=== PATIENT | female | born 1940 | race Caucasian/White ===

== ENCOUNTER 2017-01-25 06:37 | Day surgery (SDC) | payer MEDICARE ==
[~2017-01-25 06:37] MED LIST: BISOPROLOL 5MG T5 MG PO; BISOPROLOL/HCTZ1 TA1 PO; FUROSEMIDE 20MG20 MG PO; MULTIVITAMIN1 TA1 PO; NEXIUM40 MG PO; TRAMADOL50 M1 PO; VICODIN 7.5/501 EACH PO
[2017-01-25 09:03] VITALS: BP 144/65
== END 2017-01-25 08:46 | disposition home or self-care (01) ==
LOC: SDC 06:37
PROVIDERS: Ophthalmology
PROC: 08RJ3JZ Replacement of Right Lens with Synthetic Substitute, Percutaneous Approach (ICD-10-PCS; principal; 2017-01-25 08:00)
DX: H25.9 Unspecified age-related cataract (principal); H53.8 Other visual disturbances
CPT/HCPCS: V2632

== ENCOUNTER → 2017-02-04 | Outpatient (CLI) | payer MEDICARE ==
--- NOTE | 2017-02-04 11:43 | RADIOLOGY REPORT PS360 ---
DIG MAMM-SCREEN DANIEL W/CAD CAD Screening COMPARISON: Digital mammograms 11/05/2013. An 10/31/2012 INDICATION: There is a history of breast cancer patient's sister diagnosed before menopause. TECHNIQUE: Standard CC and MLO images were obtained. R2 CAD reviewed. FINDINGS: Scattered fibroglandular densities are seen throughout both breasts. There are 2 mole markers right breast. There is no suspicious lesion and there are no suspicious microcalcifications. IMPRESSION: Upper fatty parenchyma with no suspicious lesion seen recommend yearly follow-up BI-RADS CATEGORY: 1_Negative RECOMMENDED FOLLOWUP: 12M 12 MONTH FOLLOW-UP (A letter has been sent to the patient regarding results of the study.)
== END ==
LOC: RAD 10:42
DX: Z12.31 Encounter for screening mammogram for malignant neoplasm of breast (principal)
CPT/HCPCS: G0202

== ENCOUNTER 2017-02-08 07:22 | Day surgery (SDC) | payer MEDICARE ==
[2017-02-08 10:06] VITALS: BP 151/79
== END 2017-02-08 09:32 | disposition home or self-care (01) ==
LOC: SDC 07:22
PROVIDERS: Ophthalmology
PROC: 08RK3JZ Replacement of Left Lens with Synthetic Substitute, Percutaneous Approach (ICD-10-PCS; principal; 2017-02-08 09:00)
DX: H25.9 Unspecified age-related cataract (principal); H52.00 Hypermetropia, unspecified eye
CPT/HCPCS: V2632